=== PATIENT | male | born 1985 | race Caucasian/White ===

== ENCOUNTER 2017-05-27 14:57 | Emergency (ER) | payer OTHER ==
[~2017-05-27] VITALS: Ht 177.8 cm; Wt 136.1 kg
[~2017-05-27 14:57] MED LIST: AMOXIL500 MG PO; ROBITUSSIN W/CO10 ML PO
[2017-05-27 18:28] LABS: ABSOLUTE BASOPHIL COUNT 0 /CUMM (0.0-0.2); ABSOLUTE EOSINOPHIL COUNT 0 /CUMM (0.0-0.7); ABSOLUTE GRANULOCYTE CT 12.6 /CUMM (1.4-6.5); ABSOLUTE LYMPH COUNT 2.4 /CUMM (1.2-3.4); ABSOLUTE MONOCYTE COUNT 1.1 /CUMM (0.10-0.60); BASOPHIL % 0.3 % (0.0-2.0); EOSINOPHIL % 0.2 % (0-5); HEMATOCRIT 47.5 % (42-52); MEAN CORPUSCULAR HGB 27.1 PG (27.0-31.0); MEAN CORPUSCULAR HGB CONC 33.6 G/DL (33.0-37.0); MEAN CORPUSCULAR VOLUME 80.8 FL (80.0-94.0); MEAN PLATELET VOLUME 7.8 FL (7.4-10.4); PLATELET COUNT 397 /CUMM (130-400); RBC DISTRIBUTION WIDTH 13.9 % (11.5-14.5); RED BLOOD CELL CT 5.88 /CUMM (4.70-6.10); WHITE BLOOD CELL COUNT 16.3 /CUMM (4.8-10.8)
[2017-05-27 18:39] LABS: GRANULOCYTE % 77.6 % (42.2-75.2)
[2017-05-27 18:45] VITALS: BP 162/100
--- NOTE | 2017-05-27 19:04 | CT SCAN REPORT ---
EXAMINATION: CT ABDOMEN AND PELVIS WITHOUT CONTRAST CLINICAL INFORMATION: Left flank pain. Left lower quadrant pain. COMPARISON: 06/14/2015. TECHNIQUE: Contiguous axial thin section helical images of the abdomen and pelvis were performed without oral or IV contrast. The data set was reformatted in the coronal and sagittal planes and reviewed on an independent workstation. DLP: 1261 mGy-cm. FINDINGS: The visualized lung bases are clear. The visualized portions of the heart are unremarkable. The liver is of normal size and diffuse decreased attenuation without focal lesions nor intrahepatic biliary ductal dilation. A normal gallbladder is identified. There is no wall thickening or discernible pericholecystic fluid. The spleen, pancreas, adrenal glands are unremarkable. Both kidneys are of normal size and attenuation. There is no right-sided hydronephrosis. Within the lower pole of the right kidney, there is a 3 mm nonobstructive calculus. There is left perinephric stranding and left grade 1 hydroureteronephrosis secondary to an obstructive 3 mm distal left ureteral calculus. There is no abdominal free fluid. There is neither mesenteric nor retroperitoneal lymphadenopathy. Normal unopacified loops of small and large bowel are identified. A normal appendix is identified. There is no pelvic free fluid. The urinary bladder is unremarkable. There is neither pelvic nor inguinal lymphadenopathy. Bone windows: Neither sclerotic nor lytic bone lesions are identified. IMPRESSION: Left grade 1 hydronephrosis secondary to an obstructive 3 mm distal right ureteral calculus. No obstructive right renal calculus. Hepatic steatosis.
--- NOTE | 2017-05-27 19:07 | ED GI/GU/ABDOMINAL COMPLAINT ---
History of Present Illness General Chief Complaint: Abdominal Pain/Flank Pain Stated Complaint: ABDOMINAL PAIN, LT SIDE BACK PAIN Source: patient Exam Limitations: no limitations Vital Signs & Intake/Output Vital Signs & Intake/Output Vital Signs Date Time Temp Pulse Resp B/P B/P Pulse O2 O2 Flow FiO2 Mean Ox Delivery Rate 05/27 1845 97.3 82 18 162/100 98 05/27 1512 97.3 89 18 170/108 97 Room Air Allergies Coded Allergies: NO KNOWN ALLERGIES (12/03/13) Reconcile Medications Amoxicillin (Amoxil) 500 MG CAP 1 TAB PO BID STREP Hydrocodone/Acetaminophen (Sutton 5-325 Tablet) 5 MG-325 MG TABLET 1-2 TAB PO Q4-6 PRN PRN PAIN Ondansetron (Zofran Odt) 4 MG TAB.RAPDIS 1 TAB SL TID PRN NAUSEA Robitussin AC (Guaifenesin-Codeine Syrup) 10 ML LIQUID 10 ML PO Q6P PRN COUGH Tamsulosin HCl (Flomax) 0.4 MG CAP.ER.24H 1 CAP PO DAILY KIDNEY STONES Triage Note: PT HAVING LEFT FLANK PAIN STATES IT IS STABBING PAIN THAT STARTED ABOUT 0100. PT STATES HE HAS PERIODS WHEN IT ISN'T SO BAD BUT IT HAS MOSTLY HURT VERY BADLY. PT DENIES HAVING THIS TYPE OF PAIN. PT WITH NO HX OF KIDNEY STONES. Triage Nurses Notes Reviewed? yes Onset: Abrupt Duration: day(s): (1), changing over time, continues in ED Timing: single episode today Quality/Severity: cramping, moderate, sharpness Severity Numbers: 8 Location: left flank, left lower quadrant Radiation: back Activities at Onset: none Prior Abdominal Problems: none Past Sexual History: Unobtainable at this time No Modifying Factors: none HPI: 31-year-old male past medical history of asthma presents for evaluation of left- sided low back pain, radiating to the left flank and left lower quadrant. Patient discussed the pain as cramping that is imminently sharp. There was no trauma or triggering event is never had anything like this before. He reports associated nausea but no vomiting no hematuria dysuria frequency or urgency. No fever. He's not taking any medicine for pain. He states that initially the pain was a 10 out of 10 but has improved to a 7 out of 10 currently. The pain is imminently worse. No recent abdominal surgeries. Past History Travel History Traveled to [place] past 21 day No Medical History Any Pertinent Medical History? see below for history Respiratory: asthma Other Medical Hx: MORBID OBESITY Surgical History Surgical History: non-contributory Psychosocial History What is your primary language Egyptian Tobacco Use: Never used ETOH Use: occasional use Illicit Drug Use: denies illicit drug use Family History Hx Contributory? No Review of Systems Review of Systems Constitutional: Reports: no symptoms. EENTM: Reports: no symptoms. Respiratory: Reports: no symptoms. Cardiovascular: Reports: no symptoms. GI: Reports: see HPI, abdominal pain, nausea. Genitourinary: Reports: no symptoms. Musculoskeletal: Reports: see HPI, back pain. Skin: Reports: no symptoms. Neurological/Psychological: Reports: no symptoms. Hematologic/Endocrine: Reports: no symptoms. Immunologic/Allergic: Reports: no symptoms. All Other Systems: Reviewed and Negative Physical Exam Physical Exam General Appearance: well developed/nourished, no apparent distress, alert, awake Head: atraumatic, normal appearance Eyes: Bilateral: normal appearance, PERRL, EOMI. Ears, Nose, Throat, Mouth: hearing grossly normal, moist mucous membrane Neck: normal inspection, supple, full range of motion Respiratory: normal breath sounds, chest non-tender, no respiratory distress, lungs clear Cardiovascular: regular rate/rhythm, normal peripheral pulses Peripheral Pulses: 2+ radial (R), 2+ radial (L) Gastrointestinal: normal bowel sounds, soft, no organomegaly, tenderness (LLQ, LEFT FLANK ) Back: normal inspection, normal range of motion, LUMBAR PARASPINOUS MUSCLES. pALPATION. nO MIDLINE PAIN OR STEP-OFFS OR DEFORMITIES NO cva TENDERNESS Extremities: normal range of motion Neurologic/Psych: no motor/sensory deficits, awake, alert, oriented x 3, normal gait Skin: intact, normal color, warm/dry Core Measures ACS in differential dx? No Sepsis Present: No Sepsis Focused Exam Completed? No Progress Differential Diagnosis: appendicitis, bowel obstruction, colon cancer, cholecystitis, diverticulitis, gastritis, hepatitis, pancreatitis, ureterolithiasis, urinary retention, urethritis, UTI/pyelo Plan of Care: Orders Procedure Date/time Status COMPREHENSIVE METABOLIC PANEL 05/27 175 Complete CBC WITHOUT DIFFERENTIAL 05/27 1753 Complete URINALYSIS 05/27 1547 Complete Current Medications Sig/Angie Start time Last Medication Dose Stop Time Status Admin Ketorolac 60 MG ONCE ONE 05/27 1800 CAN Tromethamine 05/27 1800 (Toradol) Ondansetron HCl 4 MG ONCE ONE 05/27 1800 CAN (Zofran) 05/27 1800 Laboratory Tests 05/27/171810: Anion Gap 17 H, Estimated GFR > 60, BUN/Creatinine Ratio 12.2, Glucose 97, Calcium 10.2, Total Bilirubin 0.8, AST 28, ALT 49, Alkaline Phosphatase 91, Total Protein 8.8 H, Albumin 5.0, Globulin 3.8, Albumin/Globulin Ratio 1.3, CBC w Diff NO MAN DIFF REQ, RBC 5.88, MCV 80.8, MCH 27.1, MCHC 33.6, RDW 13.9, MPV 7.8, Gran % 77.6 H, Lymphocytes % 14.9 L, Monocytes % 7.0, Eosinophils % 0.2, Basophils % 0.3, Absolute Granulocytes 12.6 H, Absolute Lymphocytes 2.4, Absolute Monocytes 1.1 H, Absolute Eosinophils 0, Absolute Basophils 0 05/27/17 1550: Urine Color YEL, Urine Clarity CLEAR, Urine pH 6.0, Ur Specific [place] 1.015, Urine Protein TRACE H, Urine Ketones NEG, Urine Nitrite NEG, Urine Bilirubin NEG, Urine Urobilinogen 0.2, Ur Leukocyte Esterase NEG, Ur Microscopic SEDIMENT EXAMINED, Urine RBC 3-5, Urine WBC RARE, Ur Epithelial Cells RARE, Urine Bacteria RARE H, Urine Mucus FEW, Urine Hemoglobin MOD H, Urine Glucose NEG Patient seen and evaluated. He is here with left-sided back pain rating to the left flank and left lower quadrant. He has some hematuria on the UA. We'll check basic labs and a CT abdomen and pelvis. Patient medicated with Toradol and feeling better. CT scan shows a 3 mm stone on the left ureter with hydronephrosis. No signs of pyelonephritis. Patient is feeling better. His pain is controlled he is able tolerate fluids. He is able to urinate. Patient be discharged with Flomax Sutton and Zofran. Instructed him to urinate through strainers. Follow up with urology. Discussed return precautions in detail. Patient agrees the plan Diagnostic Imaging: Viewed by Me: CT Scan. Discussed w/RAD: CT Scan. Radiology Impression: PATIENT: WENDY MACIEL PRESENT AGE: 31 PATIENT ACCOUNT NO: [id number] : 84 LOCATION: [facility] ORDERING PHYSICIAN: Bam VICTORIA SERVICE DATE: 05/27/17 EXAM TYPE: CAT - CT ABD & PELVIS W/O IV CONTRAS EXAMINATION: CT ABDOMEN AND PELVIS WITHOUT CONTRAST CLINICAL INFORMATION: Left flank pain. Left lower quadrant pain. COMPARISON: 06/14/2015. TECHNIQUE: Contiguous axial thin section helical images of the abdomen and pelvis were performed without oral or IV contrast. The data set was reformatted in the coronal and sagittal planes and reviewed on an independent workstation. DLP: 1261 mGy-cm. FINDINGS: The visualized lung bases are clear. The visualized portions of the heart are unremarkable. The liver is of normal size and diffuse decreased attenuation without focal lesions nor intrahepatic biliary ductal dilation. A normal gallbladder is identified. There is no wall thickening or discernible pericholecystic fluid. The spleen, pancreas , adrenal glands are unremarkable. Both kidneys are of normal size and attenuation. There is no right-sided hydronephrosis. Within the lower pole of the right kidney, there is a 3 mm nonobstructive calculus. There is left perinephric stranding and left grade 1 hydroureteronephrosis secondary to an obstructive 3 mm distal left ureteral calculus. There is no abdominal free fluid. There is neither mesenteric nor retroperitoneal lymphadenopathy. Normal unopacified loops of small and large bowel are identified. A normal appendix is identified. There is no pelvic free fluid. The urinary bladder is unremarkable. There is neither pelvic nor inguinal lymphadenopathy. Bone windows: Neither sclerotic nor lytic bone lesions are identified. IMPRESSION: Left grade 1 hydronephrosis secondary to an obstructive 3 mm distal right ureteral calculus. No obstructive right renal calculus. Hepatic steatosis. DICTATED BY: Tanner Ortiz MD DATE/TIME DICTATED:05/27/171848 [employer]AC[employer]ITIES MAINTENANCE SUPERVISOR:BALTAZAR DATE/TIME TRANSCRIBED:05/27/171848 CONFIDENTIAL, DO NOT COPY WITHOUT APPROPRIATE AUTHORIZATION. Initial ED EKG: none Departure Departure Disposition: HOME OR SELF CARE Condition: Stable Clinical Impression Primary Impression: Kidney stone Referrals: Patient Has No Primary Care Dr (PCP/Family) Can Atkins MD Additional Instructions: Rest and drink plenty of fluids. Take Flomax as directed. Tylenol ibuprofen for pain Sutton for severe pain only this may cause drowsiness. Zofran for nausea. Monitor symptoms closely. If you have worsening pain, unable tolerate fluids, fever, unable to urinate return immediately. Otherwise follow-up with provided urologist Dr. Atkins as soon as possible. Departure Forms: Customer Survey General Discharge Information Prescriptions: Current Visit Scripts Hydrocodone/Acetaminophen (Sutton 5-325 Tablet) 1-2 TAB PO Q4-6 PRN PRN PAIN #10 TAB Tamsulosin HCl (Flomax) 1 CAP PO DAILY #20 CAP Ondansetron (Zofran Odt) 1 TAB SL TID PRN NAUSEA #15 TAB
[2017-05-27] MEDS ORDERED: NORCO 5-325 TA1 EACH PO (19:13)
[2017-05-27] MEDS ORDERED: FLOMAX0.4 M1 PO (19:13)
[2017-05-27] MEDS ORDERED: ZOFRAN ODT4 M1 SL (19:13)
== END 2017-05-27 19:17 ==
LOC: ERH 14:57
PROVIDERS: Physician Assistant Medical
DX: N20.0 Calculus of kidney (principal)
CPT/HCPCS: 74176; 81001; 96374; 96375; J1885; J2405